=== PATIENT | male | born 1970 | race Caucasian/White ===

== ENCOUNTER 2021-04-25 10:03 | Emergency (ER) | payer MEDICARE, OTHER ==
[~2021-04-25] VITALS: Ht 172.7 cm; Wt 163.6 kg
[~2021-04-25 10:03] MED LIST: /LOR25TA PO; ASPI81CH PO; BACIOIN20 TOP; BACT800T5 PO; BACTRIM TOP; COMBIN INH; DIOV320T PO; HYDR100T13 PO; INSULANT SC; LASI80TA PO; LEVO75TA3 PO; LISI5TAB PO; LYRI75CA PO; METF500T PO; METO100T PO; NOVO1INJ4 SC; PRAV40TA2 PO; PRIL20CA PO; SPIRIVA INH; SYNT75TA PO; VITA500C24 PO; VITMTA PO; ZEST5TAB PO; ZINC220T PO
[2021-04-25] MEDS ORDERED: POTA1TAB23 (12:00)
[2021-04-25] MEDS ORDERED: CLIN300C6 (12:00)
[2021-04-25] MEDS ORDERED: ADVA230A (12:00)
[2021-04-25 12:52] LABS: BASO # 0.1 10^3/uL (0.0-0.2); BASO % 0.7 % (0.0-1.0); EOS # 1.2 10^3/uL (0.0-0.5); EOS % 10.8 % (0.0-3.0); HEMOGLOBIN 15.6 g/dl (13.5-17.5); LYMPH # 2.8 10^3/uL (1.5-5.0); LYMPH % 26.5 % (24.0-44.0); MEAN CORPUSCULAR HGB CONC 33.2 g/dl (32.0-36.5); MEAN CORPUSCULAR VOLUME 87.4 fl (80.0-96.0); MONO # 0.6 10^3/uL (0.0-0.8); MONO % 5.3 % (2.0-8.0); NEUTROPHILS # 5.9 10^3/uL (1.5-8.5); NEUTROPHILS % 55.4 % (36.0-66.0); PLATELET COUNT, AUTOMATED 234 10^3/uL (150-450); RED BLOOD COUNT 5.38 10^6/uL (4.30-6.10); WHITE BLOOD COUNT 10.6 10^3/uL (4.0-10.0)
[2021-04-25 13:14] LABS: BLOOD UREA NITROGEN 11 MG/DL (7-18); C REACTIVE PROTEIN QUANTITATIV 1.15 MG/DL (0.00-0.30); CALCIUM LEVEL 9.3 MG/DL (8.5-10.1); CARBON DIOXIDE LEVEL 27 MEQ/L (21-32); CHLORIDE LEVEL 100 MEQ/L (98-107); CREATININE FOR GFR 0.82 MG/DL (0.70-1.30); GLOMERULAR FILTRATION RATE > 60.0 (>56); GLUCOSE, FASTING 207 MG/DL (70-100); POTASSIUM SERUM 4.5 MEQ/L (3.5-5.1); SODIUM LEVEL 135 MEQ/L (136-145)
[2021-04-25 13:18] LABS: ERYTHROCYTE SEDIMENTATION RATE 7 mm/hr (0-20)
[2021-04-25] MEDS ORDERED: AMPICILLIN SOD/SULBACTAM SOD 3 GM in D5W MINI-BAG PLUS 100 ML IV ONE (13:45)
[2021-04-25] MEDS ORDERED: ISOVUE-370 76% 100ML VIAL As Ordered ONE (13:47)
--- NOTE | 2021-04-25 14:07 | REP ---
INDICATION: L upper tooth pain/swelling, r/o abscess. COMPARISON: None. TECHNIQUE: Axial contrast-enhanced images were obtained from the thoracic inlet to the skull base with coronal and sagittal reformations using 100 cc Isovue 370 intravenous contrast material. Maximal intensity projection and multiplanar re-formation images along with 3-D rendered imaging of the arterial vasculature. This CT examination was performed using the following dose reduction techniques: Automated exposure control, adjustment of mA and/or kv according to the patient's size, and the use of iterative reconstruction technique. FINDINGS: Significant subcutaneous edema with soft tissue swelling and phlegmonous changes surround the left side of the maxilla and mandible primarily along the outer superficial surfaces. There is suggestion for subtle central low-density changes which may reflect incomplete forming abscess to the phlegmonous area (series 201 images 29-35). There is associated moderate left-sided submandibular and cervical chain reactive adenopathy. The nasopharyngeal cavity demonstrates patent midline airway without associated narrowing or mass/mass effect. The vascular structures are essentially symmetric and normal the osseous structures themselves are intact and without fracture or dislocation. IMPRESSION: Infectious/inflammatory changes overlying the left side of the maxilla and mandible with phlegmonous changes. No definite drainable collection is appreciated although a central area of low density change suggests the possibility of forming abscess. Associated reactive adenopathy noted. <Electronically signed by José Miguel Solis > 04/25/21 [id number]
[2021-04-25] MEDS ORDERED: AUGM875T28 PO (15:12)
[2021-04-25 15:28] VITALS: BP 165/90
--- NOTE | 2021-04-27 06:45 | ED PDOC ---
Post-Departure Follow-Up ct neck faxed to dr licea and dr eduardo for fu kennyg Zeynep Marks MD Apr 27, 2021 06:45
== END 2021-04-25 15:31 | disposition home or self-care (01) ==
LOC: M ED 10:03
DX: K04.7 Periapical abscess without sinus (principal); K02.9 Dental caries, unspecified; K08.89 Other specified disorders of teeth and supporting structures; E11.65 Type 2 diabetes mellitus with hyperglycemia; I11.0 Hypertensive heart disease with heart failure; I50.9 Heart failure, unspecified; E78.5 Hyperlipidemia, unspecified; J44.9 Chronic obstructive pulmonary disease, unspecified; E03.9 Hypothyroidism, unspecified; G47.33 Obstructive sleep apnea (adult) (pediatric); K21.9 Gastro-esophageal reflux disease without esophagitis; M54.9 Dorsalgia, unspecified; G89.29 Other chronic pain; E66.01 Morbid (severe) obesity due to excess calories; F17.200 Nicotine dependence, unspecified, uncomplicated; Z79.4 Long term (current) use of insulin; Z79.2 Long term (current) use of antibiotics; Z79.82 Long term (current) use of aspirin; Z79.890 Hormone replacement therapy; Z79.899 Other long term (current) drug therapy; Z88.5 Allergy status to narcotic agent; Z88.8 Allergy status to other drugs, medicaments and biological substances; Z98.890 Other specified postprocedural states; Z82.49 Family history of ischemic heart disease and other diseases of the circulatory system; Z80.42 Family history of malignant neoplasm of prostate
CPT/HCPCS: 70491; 80048; 83036; 85025; 85652; 86140; 87040; 96365; 99283; Q9967

== ENCOUNTER → 2022-01-27 | Outpatient (REF) | payer OTHER ==
[~2022-01-27] MED LIST changes: +ADVA230A; +AUGM875T28 PO; +CLIN-250; +POTA1TAB23
[2022-01-27 16:03] LABS: HEMATOCRIT 41.5 % (42.0-52.0); HEMOGLOBIN 13.2 g/dl (13.5-17.5); MEAN CORPUSCULAR HEMOGLOBIN 27.6 pg (27.0-33.0); MEAN CORPUSCULAR HGB CONC 31.8 g/dl (32.0-36.5); MEAN CORPUSCULAR VOLUME 86.6 fl (80.0-96.0); PLATELET COUNT, AUTOMATED 271 10^3/uL (150-450); RED BLOOD COUNT 4.79 10^6/uL (4.30-6.10); WHITE BLOOD COUNT 9.8 10^3/uL (4.0-10.0)
[2022-01-27 16:26] LABS: ALBUMIN 2.8 GM/DL (3.2-5.2); ALT/SGPT 21 U/L (12-78); BILIRUBIN,TOTAL 0.2 MG/DL (0.2-1.0); BLOOD UREA NITROGEN 13 MG/DL (7-18); CALCIUM LEVEL 8.6 MG/DL (8.5-10.1); CARBON DIOXIDE LEVEL 33 MEQ/L (21-32); CHLORIDE LEVEL 98 MEQ/L (98-107); CREATININE FOR GFR 0.72 MG/DL (0.70-1.30); GLOMERULAR FILTRATION RATE > 60.0 (>56); GLUCOSE, FASTING 249 MG/DL (70-100); POTASSIUM SERUM 4.7 MEQ/L (3.5-5.1); SODIUM LEVEL 136 MEQ/L (136-145); TOTAL PROTEIN 7.4 GM/DL (6.4-8.2); VANCOMYCIN LEVEL TROUGH 13.9 UG/ML (10.0-20.0)
== END ==
LOC: M SHH 15:09
PROVIDERS: ATTEND Student in an Organized Health Care Education/Training Program
DX: N41.2 Abscess of prostate (principal); A49.02 Methicillin resistant Staphylococcus aureus infection, unspecified site; I10 Essential (primary) hypertension

== ENCOUNTER → 2022-10-28 | Outpatient (CLI) | payer OTHER | LOC: M SLEEP 20:00 | PROVIDERS: ATTEND Physician Assistant | DX: G47.33 Obstructive sleep apnea (adult) (pediatric) (principal) ==

== ENCOUNTER → 2023-08-11 | Outpatient (REF) | payer OTHER, MEDICAID ==
[2023-08-11 18:51] LABS: CREATININE, URINE 115.2 MG/DL; MAU/CREAT RATIO 21.7 MCG/MG (0.0-30.0)
== END ==
LOC: M LAB REF 17:21
PROVIDERS: ATTEND Internal Medicine Endocrinology, Diabetes & Metabolism
DX: E11.65 Type 2 diabetes mellitus with hyperglycemia (principal)